=== PATIENT | female | born 1965 | race Caucasian/White ===

== ENCOUNTER 2018-06-02 17:24 | Emergency (ER) | payer OTHER ==
[2018-06-02 18:30] VITALS: BP 151/78
--- NOTE | 2018-06-02 18:55 | UC ---
UC General HPI - HPI Summary HPI Summary: Patient presents complaining of a questionable sinus infection for the past 2 days. She goes on to describe it as discomfort around her left ear. She admits to runny nose and some congestion but denies any drainage from her ear. - History of Current Complaint Chief Complaint: UCRespiratory Stated Complaint: LT EAR COMP Time Seen by Provider: 06/02/18 18:47 Hx Obtained From: Patient Onset/Duration: Gradual Onset Timing: Constant Pain Intensity: 3 Aggravating: nothing Alleviating: nothing Associated Signs & Symptoms: Positive: Cough. Negative: Fever, Headache - Allergy/Home Medications Allergies/Adverse Reactions: Allergies Allergy/AdvReac Type Severity Reaction Status Date / Time No Known Allergies Allergy Verified 06/02/18 18:30 Home Medications: Home Medications Aspirin [Aspir-Low] 81 mg PO DAILY 06/02/18 [History Confirmed 06/02/18] Ibuprofen 600 mg PO Q6H PRN 06/02/18 [History Confirmed 06/02/18] Simvastatin [Zocor] 40 mg PO BEDTIME 06/02/18 [History Confirmed 06/02/18] buPROPion TAB* [Wellbutrin TAB*] 100 mg PO BID 06/02/18 [History Confirmed 06/02] PMH/Surg Hx/FS Hx/Imm Hx Endocrine History: Dyslipidemia Psychological History: Depression - Surgical History Surgical History: Yes Surgery Procedure, Year, and Place: right knee surgery - Family History Known Family History: Positive: None - Social History Lives: With Family Alcohol Use: None Substance Use Type: None Smoking Status (MU): Heavy Every Day Tobacco Smoker Type: Cigarettes Amount Used/How Often: 3/4 ppd Length of Time of Smoking/Using Tobacco: 30 years When Did the Patient Quit Smoking/Using Tobacco: states no cigarettes since january 2018 but uses vape pen daily Household Exposure Type: Cigarettes - Immunization History Vaccination Up to Date: Yes Review of Systems Constitutional: Negative Skin: Negative Eyes: Negative ENT: Ear Ache, Sinus Congestion Respiratory: Cough Cardiovascular: Negative Gastrointestinal: Negative Genitourinary: Negative Motor: Negative Neurovascular: Negative Musculoskeletal: Negative Neurological: Negative Psychological: Negative Is Patient Immunocompromised?: No All Other Systems Reviewed And Are Negative: Yes Physical Exam Triage Information Reviewed: Yes Appearance: Well-Appearing Vital Signs: Initial Vital Signs Temp 97.9 F 06/02/18 18:23 Pulse 62 06/02/18 18:23 Resp 16 06/02/18 18:23 BP 151/78 06/02/18 18:23 Pulse Ox 100 06/02/18 18:23 Vital Signs Reviewed: Yes Eyes: Positive: Conjunctiva Clear ENT: Positive: Pharynx normal, TMs normal - But patient complains of pain with pressure on the left tragus, auricular manipulation and with speculum exam. Some ? slight erythema to the canal. Right side is clear and painless., Other - no auricular adenopathy. Negative: Nasal drainage, Sinus tenderness Neck: Positive: Supple, Nontender, No Lymphadenopathy Respiratory: Positive: Lungs clear, Normal breath sounds Cardiovascular: Positive: RRR, No Murmur Abdomen Description: Positive: Nontender, No Organomegaly, Soft Bowel Sounds: Positive: Present Musculoskeletal: Positive: ROM Intact Neurological: Positive: Alert Psychological: Positive: Age Appropriate Behavior Skin Exam: Normal Course/Dx - Course Course Of Treatment: non toxic, no concern for mastoiditis. given hx and PE, will cover for OM and close f/u. mild elevation in BP with no hx htn. will have a BP recheck on f/u. - Differential Dx - Multi-Symptom Provider Diagnoses: L otalgia. Discharge - Sign-Out/Discharge Documenting (check all that apply): Patient Departure - Discharge Plan Condition: Stable Disposition: HOME Prescriptions: Ciproflox/Dexameth OTIC.SUSP* [Ciprodex OTIC.SUSP*] 3 drop .SEE ORDER BID 7 Days #1 btl Patient Education Materials: Otitis Externa (ED), Earache (ED) Referrals: Connie Brice PA [Primary Care Provider] - 7 Days - Billing Disposition and Condition Condition: STABLE Disposition: Home
== END 2018-06-02 19:00 | disposition home or self-care (01) ==
LOC: UCCORT 17:24
DX: H92.02 Otalgia, left ear (principal); F32.9 Major depressive disorder, single episode, unspecified; E78.5 Hyperlipidemia, unspecified; F17.290 Nicotine dependence, other tobacco product, uncomplicated
CPT/HCPCS: 99212; G0463

== ENCOUNTER 2019-10-25 14:29 | Emergency (ER) | payer OTHER ==
--- NOTE | 2019-10-25 14:42 | UC ---
Hand/Wrist HPI - HPI Summary HPI Summary: 54 yo female presents with RIGHT thumb pain. She tells me that for the last 3-4 days she has had right thumb pain in her MPC and IP joint. Pain worse with movement. Denies numbness or specific injury. She cannot take NSAIDs, thus has been taking tylenol with no relief. She is right handed - History Of Current Complaint Stated Complaint: RT THUMB COMPLAINT Time Seen by Provider: 10/25/19 14:39 Hx Obtained From: Patient Onset/Duration: Sudden Onset Severity Initially: Moderate Severity Currently: Moderate Pain Intensity: 5 Pain Scale Used: 0-10 Numeric - Allergies/Home Medications Allergies/Adverse Reactions: Allergies Allergy/AdvReac Type Severity Reaction Status Date / Time No Known Allergies Allergy Verified 10/25/19 14:45 Home Medications: Home Medications Acetaminophen [Acetaminophen Extra Strength] 1,000 mg PO PRN 10/25/19 [History] Clopidogrel TAB* [Plavix TAB*] 75 mg PO DAILY 10/25/19 [History Confirmed ] Omeprazole 40 mg PO DAILY 10/25/19 [History Confirmed 10/25/19] PMH/Surg Hx/FS Hx/Imm Hx Endocrine History: Dyslipidemia Psychological History: Anxiety, Depression - Surgical History Surgical History: Yes Surgery Procedure, Year, and Place: right knee surgery - Family History Known Family History: Positive: None - Social History Lives: With Family Alcohol Use: None Substance Use Type: None Smoking Status (MU): Heavy Every Day Tobacco Smoker Type: Cigarettes Amount Used/How Often: 3/4 ppd Length of Time of Smoking/Using Tobacco: 30 years When Did the Patient Quit Smoking/Using Tobacco: states no cigarettes since january 2018 but uses vape pen daily Household Exposure Type: Cigarettes - Immunization History Vaccination Up to Date: Yes Review of Systems All Other Systems Reviewed And Are Negative: No Constitutional: Positive: Negative Skin: Positive: Negative Respiratory: Positive: Negative Cardiovascular: Positive: Negative Neurovascular: Positive: Negative Musculoskeletal: Positive: Other: - Right thumb pain Neurological: Positive: Negative Psychological: Positive: Negative Physical Exam - Summary Physical Exam Summary: GENERAL: NAD. WDWN. No pain distress. SKIN: No rashes, sores, lesions, or open wounds. CHEST: No accessory muscle use. Breathing comfortably and in no distress. CV: Pulses intact radial and ulnar. Cap refill <2seconds MSK: RIGHT THUMB: Mild TTP about MCP with decreased ROM here due to pain. No edema or obvious bony deformities. No snuffbox tenderness. NEURO: Alert. Sensations intact hand and all fingers. PSYCH: Age appropriate behavior. Triage Information Reviewed: Yes Vital Signs: Vital Signs: Temp Pulse Resp BP Pulse Ox 97.2 F 86 20 113/89 98 10/25/19 14:49 10/25/19 14:49 10/25/19 14:49 10/25/19 14:49 10/25/19 14:49 Vital Signs Reviewed: Yes Diagnostics - Radiology Thumb XR Radiology Interpretation Completed By: Radiologist Summary of Radiographic Findings: IMPRESSION: OSTEOARTHRITIS. NO ACUTE OSSEOUS INJURY. IF SYMPTOMS PERSIST, RECOMMEND REPEAT IMAGING. Hand/Wrist Course/Dx - Course Course Of Treatment: XR as above. Suspect arthritis pain. Advised to rest, ice, and use thumb spica splint for comfort. Continue tylenol. F/u with Ortho if symptoms do not improve - Differential Dx/Diagnosis Provider Diagnosis: Thumb pain Discharge ED - Sign-Out/Discharge Documenting (check all that apply): Patient Departure All imaging exams completed and their final reports reviewed: Yes - Discharge Plan Condition: Stable Disposition: HOME Patient Education Materials: Finger Sprain (ED) Referrals: Connie Brice PA [Primary Care Provider] - Morgan Arteaga MD [Medical Doctor] - If Needed Additional Instructions: If you develop a fever, shortness of breath, chest pain, new or worsening symptoms - please call your PCP or go to the ED immediately. Your blood pressure was high at todays visit. Please see your primary provider within 4 weeks for recheck and re-evaluation. The X-ray of your thumb shows arthritis. I suspect you have a flare of this in your thumb that is causing you pain. - Billing Disposition and Condition Condition: STABLE Disposition: Home
--- OUTSIDE RECORDS SUMMARY | 2019-10-25 14:45 | XMS REPORT | Continuity of Care Document ---
:1965 External Reference #:[id number] Author Name Rhona Rivera MD Address [address] [place] [address] Care Team Providers Name Role Phone Norman Brice PA - Physician Care Team Information Rn Palliative [phone] Director Of Community Life Problems Active Problems Provider Date Screening for malignant neoplasm of colon Bob Fink MD Onset: 2017 Constipation Bob Fink MD Onset: 02/20/2018 Heartburn Bob Fink MD Onset: 02/20/2018 Encounter for screening for other disorder Bob Fink MD Onset: 2017 Social History Type Date Description Comments Sex Unknown Tobacco Use Start: Unknown Vapes Smokeless Tobacco Never Used Smokeless Tobacco ETOH Use Denies alcohol use Tobacco Use Start: Unknown Vapes Recreational Drug Use Denies Drug Use Smoking Status Reviewed: 09/24/19 Vapes Allergies, Adverse Reactions, Alerts Description No Known Drug Allergies Medications Active Medications SIG Qnty Indications Ordering Provider Date Wellbutrin SR 1 tab by mouth Unknown 150mg twice a day Tablets ER 12HR Flonase Allergy Relief 1 spray each nare Unknown every day 50mcg/Act Suspension Aspirin 81 Low Dose once a day Unknown 81mg Chewtabs Atorvastatin Calcium 1 by mouth every Unknown 20mg day Tablets Ibuprofen prn Unknown 600mg Tablets Clopidogrel Bisulfate Take 1 Tablet By Unknown Mouth Once Daily 75mg Tablets Omeprazole Take 1 Capsule By Unknown 20mg Capsules Mouth Once Daily DR In The Morning Before Meal(S) Immunizations CPT Code Status Date Vaccine Lot # [id number] Given 09/20/2010 flu vaccination Vital Signs Date Vital Result Comment 09/24/2019 2:17pm BP Systolic 108 mmHg BP Diastolic 80 mmHg Body Temperature 96.6 F Heart Rate 99 /min Height 62.5 inches 5'2.50" Weight 220.00 lb BMI (Body Mass Index) 39.6 kg/m2 BSA (Body Surface Area) 2.00 m2 [place] body weight in kilograms 51 kg O2 % dC Oximetry 96 % 02/20/2018 9:18am BP Systolic Sitting Left Arm 128 mmHg BP Diastolic Sitting Left Arm 78 mmHg Heart Rate 100 /min Respiratory Rate 20 /min Height 62 inches 5'2" Weight 185.00 lb BMI (Body Mass Index) 33.8 kg/m2 BSA (Body Surface Area) 1.85 m2 [place] body weight in kilograms 50 kg Results Description No Information Available Procedures Description No Information Available Medical Devices Description No Information Available Encounters Description No Information Available Assessments Date Code Description Provider 09/24/2019 M17.11 Unilateral primary osteoarthritis, right knee Rhona Rivera MD 09/24/2019 S83.231D Complex tear of medial meniscus, current Rhona Rivera MD injury, right knee, subsequent encounter Plan of Treatment 09/24/2019 - Rhona Rivera MDM17.11 Unilateral primary osteoarthritis, right kneeS83.231D Complex tear of medial meniscus, current injury, right knee, subsequent encounterNew Therapy:Physical/Occupational Therapy Functional Status Description No Information Available Mental Status Description No Information Available Referrals Description No Information Available
[2019-10-25 14:55] VITALS: BP 113/89
== END 2019-10-25 15:43 | disposition home or self-care (01) ==
LOC: UCCORT 14:29
DX: M79.644 Pain in right finger(s) (principal); M19.041 Primary osteoarthritis, right hand; F17.210 Nicotine dependence, cigarettes, uncomplicated; Z79.02 Long term (current) use of antithrombotics/antiplatelets
CPT/HCPCS: 99213; G0463